=== PATIENT | male | born 1985 ===

== ENCOUNTER 2016-11-07 16:49 | Emergency (ER) | payer MEDICAID ==
[2016-11-07 17:10] VITALS: BP 149/71; PULSE 71; RESP 16; TEMP 98.9; O2SAT 100
[2016-11-07] MEDS ORDERED: Naproxen 500 MG TAB PO ONE (18:10)
[2016-11-07] MEDS: Naproxen 500 MG TAB PO STA (18:16)
--- NOTE | 2016-11-07 18:22 | ED PDOC ---
Upper Extremity Pain/Injury Time Seen by Provider: 11/07/16 17:55 Chief Complaint (Nursing): Upper Extremity Problem/Injury Chief Complaint (Provider): left arm pain History Per: Patient History/Exam Limitations: no limitations Onset/Duration Of Symptoms: Days (x 3) Current Symptoms Are (Timing): Still Present Additional Complaint(s): Jacquelin Sun is a 30 year old male, with no previous medical history, who presents to the ED with complaints of left hand numbness on going for the past 3 days. Pt reports noticing the numbness to his 1st, 2nd and 3rd digits. Pt also notes to experiencing swelling and pain to the arm. Pt reports experiencing difficulty gripping with his left hand. Pt states to massaging his arm which provided relieve and resolved the numbness. Pt denies any injury. PMD: none provided Past Medical History Reviewed: Historical Data, Nursing Documentation, Vital Signs Vital Signs: Last Vital Signs Temp 98.9 F 11/07/16 17:07 Pulse 71 11/07/16 17:07 Resp 16 11/07/16 17:07 BP 149/71 11/07/16 17:07 Pulse Ox 100 11/07/16 17:07 - Medical History PMH: No Chronic Diseases - Surgical History Surgical History: No Surg Hx - Family History Family History: States: Unknown Family Hx - Home Medications Home Medications: Ambulatory Orders Medication Instructions Recorded Naproxen 1 tab PO BID PRN #14 tab 11/07/16 - Allergies Allergies/Adverse Reactions: Allergies Allergy/AdvReac Type Severity Reaction Status Date / Time No Known Allergies Allergy Verified 11/07/16 17:07 Review of Systems ROS Statement: Except As Marked, All Systems Reviewed And Found Negative Musculoskeletal: Positive for: Other (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 Decreased strength with flexion of left arm.). Negative for: Tenderness, Pedal Edema, Calf Tenderness, Deformity, Swelling - ECG O2 Sat by Pulse Oximetry: 100 (RA) Pulse Ox Interpretation: Normal - Progress ED Course And Treament: PLACED IN WRIST SPLINT Medical Decision Making Medical Decision Making: Initial Impression: paresthesia Initial Plan: * Naproxen * reevaluation Scribe Attestation: Documented by Milvia Gonsalez, acting as a scribe for Michael Levin PA-C. Provider Scribe Attestation: All medical record entries made by the Scribe were at my direction and personally dictated by me. I have reviewed the chart and agree that the record accurately reflects my personal performance of the history, physical exam, medical decision making, and the department course for this patient. I have also personally directed, reviewed, and agree with the discharge instructions and disposition. Disposition - Clinical Impression Clinical Impression: Median nerve injury, Paresthesia - Patient ED Disposition Is Patient to be Admitted: No - Disposition Referrals: Larissa Miner MD [Staff Provider] - Disposition: Routine/Home Disposition Time: 00:10 Condition: FAIR Prescriptions: Naproxen 1 tab PO BID PRN #14 tab PRN Reason: Pain, Moderate (4-7) Instructions: Paresthesia (ED) Forms: [facility] ED School/Work Excuse Print Language: MALTESE
== END 2016-11-07 18:39 | disposition home or self-care (01) ==
LOC: H.ER 16:49
DX: R20.2 Paresthesia of skin (principal)